=== PATIENT | male | born 1990 | race Caucasian/White ===

== ENCOUNTER 2018-02-13 22:41 | Outpatient (CLI) | payer OTHER | END 2018-02-13 22:42 | disposition critical access hospital (66) | LOC: EMS 22:41 | PROVIDERS: ATTEND Surgery | DX: R69 Illness, unspecified (principal); R07.9 Chest pain, unspecified; R20.2 Paresthesia of skin | CPT/HCPCS: A0425; A0429 ==

== ENCOUNTER 2018-02-13 23:03 | Emergency (ER) | payer OTHER ==
--- NOTE | 2018-02-13 23:26 | ED Physician Documentation ---
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 This completely resolved [employer]. He also has been having several weeks of fatigue, episodic generalized headache, myalgias. Review of Systems Constitutional: reports: Fatigue. denies: Fever, Chills, Myalgias, Sweats Eyes: denies: Loss of vision, Decreased vision Cardiac: denies: Chest pain / pressure (on my HPI, he denies chest pain), Palpitations Respiratory: denies: Dyspnea GI: denies: Abdominal Pain, Nausea, Vomiting Neurologic: reports: Numbness (resolved), Headache (episodic x weeks but not currently in ED). denies: Generalized weakness, Focal weakness PD PAST MEDICAL HISTORY - Past Medical History Cardiovascular: None Respiratory: None Neuro: None Endocrine/Autoimmune: None GI: None : None HEENT: None Psych: None Musculoskeletal: Other Derm: None - Past Surgical History Past Surgical History: No - Present Medications Home Medications: Ambulatory Orders Medication Instructions Recorded Confirmed No Known Home Medications [No 02/13/18 02/13/18 Known Home Medications] - Allergies Allergies/Adverse Reactions: Allergies Allergy/AdvReac Type Severity Reaction Status Date / Time Sulfa (Sulfonamide Allergy Unknown Verified 02/13/18 23:08 Antibiotics) - Social History Does the pt smoke?: Yes Smoking Status: Current every day smoker Does the pt drink ETOH?: No Does the pt have substance abuse?: Yes Substance Use and Type: Marijuana - Immunizations Immunizations are current?: Yes - POLST Patient has POLST: No PD ED PE NORMAL - Vitals Vital signs reviewed: Yes - General General: Alert and oriented X 3, No acute distress, Well developed/nourished - HEENT HEENT: PERRL, EOMI, Moist mucous membranes - Cardiac Cardiac: RRR, No murmur - Respiratory Respiratory: No respiratory distress, Clear bilaterally - Neuro Neuro: Alert and oriented X 3, marine resource economist 2-12 intact, No motor deficit, No sensory deficit, Normal speech Eye Opening: Spontaneous Motor: Obeys Commands Verbal: Oriented GCS Score: 15 Results - Vitals Vitals: Vital Signs - 24 hr 02/13/18 02/13/18 23:03 23:42 Temperature 37.2 C Heart Rate 80 81 Respiratory 18 18 Rate Blood Pressure 152/87 H 140/87 H O2 Saturation 99 97 Oxygen O2 Source Room air PD MEDICAL DECISION MAKING - ED course Complexity details: considered differential, d/w patient ED course: Patient presents asymptomatic. His numbness resolved [employer]AR[employer]. I recommended blood tests (CBC, BMP) to investigate possible causes of his recurring symptoms ( fatigue, NERI, malaise), but he says he feels well at the time of H+P and declines emergent testing beyond the EKG performed shortly after arrival. I encouraged him to return if worse, and to contact his primary care provider to arrange for next available f/u Departure - Departure Disposition: 01 Home, Self Care Clinical Impression: Numbness Condition: Good Instructions: ED Paraesthesias Follow-Up: Mahin Hurd MD [Primary Care Provider] - Within 1 week Discharge Date/Time: 02/13/18 23:49
[2018-02-13 23:45] VITALS: BP 140/87
== END 2018-02-13 23:49 | disposition home or self-care (01) ==
LOC: EDUNIT# → ED 23:03
DX: R20.0 Anesthesia of skin (principal); F17.200 Nicotine dependence, unspecified, uncomplicated
CPT/HCPCS: 93005; 99283

== ENCOUNTER 2020-01-29 04:13 | Outpatient (CLI) | payer MEDICAID | END 2020-01-29 04:14 | disposition EMS.NT | LOC: EMS 04:13 | PROVIDERS: ATTEND Surgery | DX: R06.02 Shortness of breath (principal) ==

== ENCOUNTER 2020-04-14 00:52 | Outpatient (CLI) | payer MEDICAID | END 2020-04-14 00:53 | disposition critical access hospital (66) | LOC: EMS 00:52 | PROVIDERS: ATTEND Surgery | DX: R19.7 Diarrhea, unspecified (principal); R06.00 Dyspnea, unspecified; R07.89 Other chest pain; R20.0 Anesthesia of skin | CPT/HCPCS: A0425; A0427; A0999 ==

== ENCOUNTER 2020-04-14 01:11 | Emergency (ER) | payer MEDICAID ==
[2020-04-14] MEDS ORDERED: SODIUM CHLORIDE 0.9% 1,000 ML IV STA (01:35)
[2020-04-14 01:50] LABS: MUDS CUTOFF CONCENTRATIONS CUTOFF CONC BELOW:
[2020-04-14 02:02] LABS: AMPHETAMINE SCREEN,URINE POSITIVE (NEGATIVE); BENZODIAZEPINES SCREEN, URINE NEGATIVE (NEGATIVE); COCAINE SCREEN URINE POSITIVE (NEGATIVE); METHADONE SCREEN, URINE NEGATIVE (NEGATIVE); METHAMPHETAMINES SCREEN, URINE POSITIVE (NEGATIVE); OPIATE SCREEN, URINE NEGATIVE (NEGATIVE); OXYCODONE SCREEN, URINE NEGATIVE (NEGATIVE); PROPOXYPHENE SCREEN, URINE NEGATIVE (NEGATIVE); TRICYCLIC ANTIDEPRESSANT,URINE NEGATIVE (NEGATIVE)
[2020-04-14 02:02] LABS: BASOPHILS # (AUTO) 0.1 10^3/uL (0.0-0.1); BASOPHILS % (AUTO) 0.7 %; EOSINOPHILS # (AUTO) 0.2 10^3/uL (0.0-0.7); EOSINOPHILS % (AUTO) 2.4 %; HGB - HEMOGLOBIN 15.6 g/dL (14.0-18.0); LYMPHOCYTES # (AUTO) 2.6 10^3/uL (1.5-3.5); LYMPHOCYTES % (AUTO) 27.2 %; MEAN CORPUSCULAR HEMOGLOBIN 30.4 pg (27.0-31.0); MEAN CORPUSCULAR HGB CONC 35.5 g/dL (32.0-36.0); MEAN CORPUSCULAR VOLUME 85.6 fL (80.0-94.0); MEAN PLATELET VOLUME 9.7 fL (7.4-11.4); MONOCYTES # (AUTO) 1.1 10^3/uL (0.0-1.0); MONOCYTES % (AUTO) 11.7 %; NEUTROPHILS # (AUTO) 5.5 10^3/uL (1.5-6.6); NEUTROPHILS % (AUTO) 57.4 %; PLT - PLATELET COUNT 254 10^3/uL (130-450); RED BLOOD COUNT 5.14 10^6/uL (4.70-6.10); RED CELL DISTRIBUTION WIDTH 12.5 % (12.0-15.0); WHITE BLOOD COUNT 9.5 x10^3/uL (4.8-10.8)
--- NOTE | 2020-04-14 02:06 | ED Physician Documentation ---
PD HPI DYSPNEA - Stated complaint Stated Complaint: SOA - Chief complaint Chief Complaint: Heent - History obtained from History obtained from: Patient - History of Present Illness Timing - onset: How many days ago (3) Timing - onset during: Rest Timing - duration: Days (3) Timing - details: Gradual onset, Still present Inciting event(s): URI Improved by: Rest Worsened by: Exertion, Coughing Associated symptoms: Cough, Wheezing. No: Fever Similar symptoms before: Diagnosis (asthma with uri) Recently seen: Not recently seen - Additional information Additional information: Previously healthy 29-year-old male with a history of intermittent asthma has developed a cough for the past 3 days as well as some shortness of breath and some swelling to his throat. He is having more more difficulty breathing this evening. Review of Systems Constitutional: denies: Fever Eyes: denies: Decreased vision Ears: denies: Ear pain Nose: reports: Rhinorrhea / runny nose, Congestion Throat: reports: Sore throat Cardiac: denies: Chest pain / pressure, Palpitations Respiratory: reports: Dyspnea, Cough, Wheezing GI: denies: Abdominal Pain, Nausea, Vomiting : denies: Dysuria, Frequency PD PAST MEDICAL HISTORY - Past Medical History Past Medical History: Yes Cardiovascular: None Respiratory: None Endocrine/Autoimmune: None GI: None : None HEENT: None Psych: None Musculoskeletal: Other Derm: None Other Past Medical History: Cocaine abuse - Past Surgical History Past Surgical History: No - Present Medications Home Medications: Ambulatory Orders Medication Instructions Recorded Confirmed Amox/Clav 875/125 [Augmentin] 1 each PO Q12H #20 tablet 04/14/20 predniSONE [Prednisone] 40 mg PO DAILY #10 tablet 04/14/20 - Allergies Allergies/Adverse Reactions: Allergies Allergy/AdvReac Type Severity Reaction Status Date / Time Sulfa (Sulfonamide Allergy Unknown Verified 04/14/20 01:33 Antibiotics) - Social History Does the pt smoke?: Yes Smoking Status: Current every day smoker Does the pt drink ETOH?: Yes ETOH Use: Beer, Liquor Does the pt have substance abuse?: Yes Substance Use and Type: Cocaine/Crack - Immunizations Immunizations are current?: Yes - POLST Patient has POLST: No PD ED PE NORMAL - Vitals Vital signs reviewed: Yes (Hypertensive) - General General: Alert and oriented X 3, No acute distress, Well developed/nourished - HEENT HEENT: Atraumatic, PERRL, EOMI, Other (There is erythema to the left TM with distortion of the landmarks and the right is clear.There is erythema and swelling of the uvula which is not appear to obstruct the airway.) - Neck Neck: Supple, no meningeal sign, No bony TTP - Cardiac Cardiac: RRR, No murmur - Respiratory Respiratory: Other (The patient is tachypneic at rest and on my exam there is inspiratory and expiratory wheezing throughout.) - Abdomen Abdomen: Soft, Non tender - Back Back: No CVA TTP, No spinal TTP - Derm Derm: Normal color, Warm and dry, No rash - Extremities Extremities: No deformity, No edema, No calf tenderness / cord - Neuro Neuro: Alert and oriented X 3, senior clinical research scientist 2-12 intact, No motor deficit, No sensory deficit, Normal speech Eye Opening: Spontaneous Motor: Obeys Commands Verbal: Oriented GCS Score: 15 - Psych Psych: Normal affect, Other (Mood is anxious) Results - Vitals Vitals: Vital Signs - 24 hr 04/14/20 04/14/20 04/14/20 01:08 01:49 02:16 Temperature 36.7 C Heart Rate 64 62 59 L Respiratory 18 17 18 Rate Blood Pressure 131/82 H 152/101 H O2 Saturation 100 100 04/14/20 04/14/20 04/14/20 02:42 03:03 04:56 Temperature Heart Rate 72 50 L 76 Respiratory 17 18 21 Rate Blood Pressure 122/84 H 122/84 H 147/91 H O2 Saturation 97 100 99 Oxygen O2 Source Room air - Labs Labs: Laboratory Tests 04/14/20 04/14/20 04/14/20 01:30 01:52 01:52 WBC 9.5 RBC 5.14 Hgb 15.6 Hct 44.0 MCV 85.6 MCH 30.4 MCHC 35.5 RDW 12.5 Plt Count 254 MPV 9.7 Neut # (Auto) 5.5 Lymph # (Auto) 2.6 Brule # (Auto) 1.1 H Eos # (Auto) 0.2 Baso # (Auto) 0.1 Absolute Nucleated RBC 0.00 Nucleated RBC % 0.0 Sodium 134 L Potassium 3.0 L Chloride 100 L Carbon Dioxide 22 Anion Gap 12.0 BUN 15 Creatinine 0.8 Estimated GFR (MDRD) 116 Glucose 113 H Calcium 9.2 Total Bilirubin 1.2 H AST 24 ALT 30 Alkaline Phosphatase 66 Total Protein 8.3 H Albumin 4.6 Globulin 3.7 Albumin/Globulin Ratio 1.2 Lipase 20 L Urine Opiates Screen NEGATIVE Ur Oxycodone Screen NEGATIVE Urine Methadone Screen NEGATIVE Ur Propoxyphene Screen NEGATIVE Ur Barbiturates Screen NEGATIVE Ur Tricyclics Screen NEGATIVE Ur Phencyclidine Scrn NEGATIVE Ur Amphetamine Screen POSITIVE H U Methamphetamines Scrn POSITIVE H U Benzodiazepines Scrn NEGATIVE Urine Cocaine Screen POSITIVE H U Cannabinoids Screen NEGATIVE Ethyl Alcohol < 5.0 - Rads (name of study) 2 view chest Radiology: Prelim report reviewed (Impression: No consolidation.), EMP read indepedently, See rad report PD MEDICAL DECISION MAKING - ED course Complexity details: reviewed results, re-evaluated patient, considered differential, d/w patient ED course: 29-year-old male with swelling of the uvula a cough some wheezing and a sensation that he is having a difficult time getting a full deep breath. A chest x-ray is without evidence of infiltrate the patient has minimal response to a DuoNeb treatment he does have otitis on exam. The patient does admit to cocaine mixed with amphetamine and methamphetamine and snorting this last night. He did not keep this up prior to snorting it. In the emergency department the patient is given intravenous dexamethasone and Rocephin with improvement. He does not have much improvement with a DuoNeb treatment.The patient is anxious on arrival and he is hyperventilating developing hyperventilation syndrome with numbness to his lips toes and fingers.I suspect a portion of the patient's sensation of difficulty breathing is related to swelling of the uvula which may be unrelated to the otitis. He has improvement when the uvula swelling is is improved.We will place him on a course of antibiotic and short course of prednisone. Departure - Departure Disposition: 01 Home, Self Care Clinical Impression: Acute hyperventilation syndrome, Swollen uvula Otitis media Qualifiers: Otitis media type: suppurative Chronicity: acute Laterality: left Recurrence: non-recurrent Spontaneous tympanic membrane rupture: without spontaneous rupture Qualified Code(s): H66.002 - Acute suppurative otitis media without spontaneous rupture of ear drum, left ear Condition: Stable Instructions: ED Otitis Media Acute Adult, ED Uvulitis Follow-Up: [facility] [Provider Group] Prescriptions: Amox/Clav 875/125 [Augmentin] 1 each PO Q12H #20 tablet predniSONE [Prednisone] 40 mg PO DAILY #10 tablet
[2020-04-14] MEDS ORDERED: cefTRIAXone 1 GM in SODIUM CHLORIDE 0.9% MINIBAG 100 ML IV STA (02:07)
[2020-04-14] MEDS ORDERED: IPRATROPIUM/ALBUTEROL 3 ML NEB INH STA (02:07)
[2020-04-14] MEDS ORDERED: DEXAMETHASONE 10 MG/ML VIAL IVP STA (02:07)
[2020-04-14 02:14] LABS: ALBUMIN 4.6 g/dL (3.2-5.5); ALBUMIN/GLOBULIN RATIO 1.2 (1.0-2.2); ALKALINE PHOSPHATASE 66 IU/L (42-121); ALT ALANINE AMINOTRANSFERASE 30 IU/L (10-60); AST ASPARTATE AMINOTRANSFERASE 24 IU/L (10-42); BILIRUBIN,TOTAL 1.2 mg/dL (0.2-1.0); BUN - BLOOD UREA NITROGEN 15 mg/dL (6-20); CALCIUM 9.2 mg/dL (8.5-10.3); CARBON DIOXIDE - CO2 22 mmol/L (21-32); CHLORIDE 100 mmol/L (101-111); CREATININE 0.8 mg/dL (0.6-1.2); GLUCOSE 113 mg/dL (70-100); LIPASE 20 U/L (22-51); SODIUM 134 mmol/L (135-145); TOTAL PROTEIN 8.3 g/dL (6.7-8.2)
[2020-04-14 05:29] VITALS: BP 150/90
--- NOTE | 2020-04-14 09:32 | XRAY Report ---
PROCEDURE: Chest 2 View X-Ray INDICATIONS: central chest pain TECHNIQUE: 2 view(s) of the chest. COMPARISON: No priors are currently available for comparison. FINDINGS: Surgical changes and devices: None. Lungs and pleura: No pleural effusions or pneumothorax. Lungs are clear. Mediastinum: Mediastinal contours are normal. Heart size is normal. Bones and chest wall: No suspicious bony abnormalities. Soft tissues appear unremarkable. IMPRESSION: No acute pulmonary process. The above findings are concordant with preliminary report. Reviewed by: Bree Flores MD on 04/14/2020 9:31 AM PDT Approved by: Bree Flores MD on 04/14/2020 9:31 AM PDT Station ID: [id number]
== END 2020-04-14 05:29 | disposition home or self-care (01) ==
LOC: EDUNIT# → ED 01:11
DX: H66.002 Acute suppurative otitis media without spontaneous rupture of ear drum, left ear (principal); K13.79 Other lesions of oral mucosa; F45.8 Other somatoform disorders; F41.9 Anxiety disorder, unspecified; J45.20 Mild intermittent asthma, uncomplicated; F17.200 Nicotine dependence, unspecified, uncomplicated
CPT/HCPCS: 36415; 71046; 80053; 80306; 80320; 83690; 85025; 94640; 96365; 96375; 99284

== ENCOUNTER 2020-12-12 09:50 | Emergency (ER) | payer MEDICAID ==
[2020-12-12 10:10] LABS: RAPID STREP SCREEN Negative (Negative)
[2020-12-12] MEDS ORDERED: CHERRY SYRUP 10 ML UDC PO ONE (10:29)
[2020-12-12] MEDS ORDERED: DEXAMETHASONE 10 MG/ML VIAL PO STA (10:29)
--- NOTE | 2020-12-12 10:32 | ED Physician Documentation ---
PD HPI HEENT - Stated complaint Stated Complaint: SORE THROAT - Chief complaint Chief Complaint: Resp - History obtained from History obtained from: Patient - History of Present Illness Timing - onset: How many days ago (3-4) Timing - duration: Days (3-4) Timing - details: Gradual onset, Still present Location: Throat Improves: Medication Worsens: Swalllowing Associated symptoms: Congestion, Rhinorrhea, Cough. 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 He does not think he has been exposed to coronavirus. He was asked by his boss to get his throat checked out today and he was asked not to return to work until after he has had his throat checked. He did have a similar issue last summer this cleared up relatively easily with some antibiotic and steroid. Review of Systems Constitutional: denies: Fever Eyes: denies: Decreased vision Ears: denies: Ear pain Nose: reports: Rhinorrhea / runny nose, Congestion Throat: reports: Sore throat Cardiac: denies: Chest pain / pressure, Palpitations Respiratory: reports: Dyspnea, Cough, Wheezing GI: denies: Abdominal Pain, Nausea, Vomiting : denies: Dysuria, Frequency PD PAST MEDICAL HISTORY - Past Medical History Cardiovascular: None Respiratory: None Endocrine/Autoimmune: None GI: None : None HEENT: None Psych: None Musculoskeletal: Other Derm: None - Past Surgical History Past Surgical History: No - Present Medications Home Medications: Ambulatory Orders Medication Instructions Recorded Confirmed Amox/Clav 875/125 [Augmentin] 1 each PO Q12H #20 tab 12/12/20 - Allergies Allergies/Adverse Reactions: Allergies Allergy/AdvReac Type Severity Reaction Status Date / Time Sulfa (Sulfonamide Allergy Unknown Verified 12/12/20 09:55 Antibiotics) - Social History Does the pt smoke?: Yes Smoking Status: Current every day smoker Does the pt drink ETOH?: Yes Does the pt have substance abuse?: Yes - Immunizations Immunizations are current?: Yes - POLST Patient has POLST: No PD ED PE NORMAL - Vitals Vital signs reviewed: Yes (hypertensive ) - General General: Alert and oriented X 3, No acute distress, Well developed/nourished - HEENT HEENT: Atraumatic, PERRL, EOMI, Other (The right TM is inflamed with distortion of the landmarks. The left is less involved only flush with retained landmarks. swelling and erythema to the uvula is again present. ) - Neck Neck: Supple, no meningeal sign, No bony TTP - Cardiac Cardiac: RRR, No murmur - Respiratory Respiratory: No respiratory distress, Clear bilaterally - Abdomen Abdomen: Soft, Non tender - Back Back: No CVA TTP, No spinal TTP - Derm Derm: Normal color, Warm and dry, No rash - Extremities Extremities: No deformity, No edema - Neuro Neuro: Alert and oriented X 3, oncology social work 2-12 intact, No motor deficit, No sensory deficit, Normal speech Eye Opening: Spontaneous Motor: Obeys Commands Verbal: Oriented GCS Score: 15 - Psych Psych: Normal mood, Normal affect Results - Vitals Vitals: Vital Signs - 24 hr 12/12/20 12/12/20 09:55 10:44 Temperature 37.2 C Heart Rate 90 80 Respiratory 19 19 Rate Blood Pressure 156/97 H 110/67 O2 Saturation 100 100 Oxygen O2 Source Room air - EKG (time done) 0956 Rate: Rate (enter#) (84) Rhythm: NSR Ischemia: Normal ST segments Compare to prior EKG: Unchanged from prior EKG (SPT 02-13-2018 no changes) Computer interpretation: Agree with computer - Labs Labs: Laboratory Tests 12/12/20 09:57 Group A Strep Rapid Negative PD MEDICAL DECISION MAKING - ED course Complexity details: considered differential, d/w patient ED course: 30 y/o male with cough and congestion with sore throat has OM on exam and his lungs here sound clear. He is administered PO decadron and we will put him on a course of augmentin again. Departure - Departure Disposition: 01 Home, Self Care Clinical Impression: Swollen uvula Otitis media Qualifiers: Otitis media type: suppurative Chronicity: acute Laterality: right Recurrence: recurrent Spontaneous tympanic membrane rupture: without spontaneous rupture Qualified Code(s): H66.004 - Acute suppurative otitis media without spontaneous rupture of ear drum, recurrent, right ear Condition: Stable Instructions: ED Otitis Media Acute Adult, ED Uvulitis Follow-Up: [facility] [Provider Group] Prescriptions: Amox/Clav 875/125 [Augmentin] 1 each PO Q12H #20 tab Forms: Activity restrictions Discharge Date/Time: 12/12/20 10:44
[2020-12-12 10:45] VITALS: BP 110/67
== END 2020-12-12 10:44 | disposition home or self-care (01) ==
LOC: ED 09:50
DX: J02.9 Acute pharyngitis, unspecified (principal); K13.79 Other lesions of oral mucosa; H66.004 Acute suppurative otitis media without spontaneous rupture of ear drum, recurrent, right ear; F17.200 Nicotine dependence, unspecified, uncomplicated
CPT/HCPCS: 87070; 87430; 93005; 99283; 99284; A9270

== ENCOUNTER 2021-06-26 08:00 | Outpatient (CLI) | payer MEDICAID ==
[2021-06-26 12:52] LABS: BASOPHILS # (AUTO) 0.1 10^3/uL (0.0-0.1); BASOPHILS % (AUTO) 0.9 %; EOSINOPHILS # (AUTO) 0.4 10^3/uL (0.0-0.7); HCT - HEMATOCRIT 45.2 % (42.0-52.0); HGB - HEMOGLOBIN 15.1 g/dL (14.0-18.0); LYMPHOCYTES # (AUTO) 1.7 10^3/uL (1.5-3.5); LYMPHOCYTES % (AUTO) 26.5 %; MEAN CORPUSCULAR HEMOGLOBIN 29.5 pg (27.0-31.0); MEAN CORPUSCULAR HGB CONC 33.4 g/dL (32.0-36.0); MEAN CORPUSCULAR VOLUME 88.5 fL (80.0-94.0); MEAN PLATELET VOLUME 10.7 fL (7.4-11.4); MONOCYTES # (AUTO) 0.5 10^3/uL (0.0-1.0); MONOCYTES % (AUTO) 7.9 %; NEUTROPHILS # (AUTO) 3.6 10^3/uL (1.5-6.6); NEUTROPHILS % (AUTO) 57.4 %; PLT - PLATELET COUNT 270 10^3/uL (130-450); RED BLOOD COUNT 5.11 10^6/uL (4.70-6.10); RED CELL DISTRIBUTION WIDTH 12.3 % (12.0-15.0); WHITE BLOOD COUNT 6.3 x10^3/uL (4.8-10.8)
[2021-06-26 13:04] LABS: CALCIUM 9.5 mg/dL (8.5-10.3); CREATININE 0.9 mg/dL (0.6-1.2)
== END 2021-06-26 23:59 | disposition home or self-care (01) ==
LOC: LAB.N 08:00
PROVIDERS: ATTEND Physician Assistant Medical
DX: R53.83 Other fatigue (principal)
CPT/HCPCS: 36415; 80048; 84443; 85025

== ENCOUNTER 2021-11-25 02:23 | Outpatient (CLI) | payer MEDICAID | END 2021-11-25 02:24 | disposition left against medical advice (07) | LOC: EMS 02:23 | DX: F41.9 Anxiety disorder, unspecified (principal); F43.10 Post-traumatic stress disorder, unspecified ==